=== PATIENT | male | born 1950 | race Caucasian/White ===

== ENCOUNTER 2018-09-04 03:41 | Emergency (ER) | payer OTHER ==
[~2018-09-04] VITALS: Ht 172.7 cm; Wt 59.0 kg
[2018-09-04] MEDS ORDERED: ONDANSETRON HCL INJ 2 MG/ML VIAL IV STA (03:50)
[2018-09-04 04:00] LABS: BASOPHILS % 0.3 % (0.0-1.0); EOSINOPHILS # (AUTO) 0.1 (0.0-0.4); EOSINOPHILS % 1.3 % (0.0-6.0); HEMATOCRIT 33.6 % (38.2-49.6); HEMOGLOBIN 11.8 g/dL (14.0-18.0); LYMPHOCYTES # (AUTO) 1.1 (1.0-3.2); LYMPHOCYTES % 10.3 % (18.0-39.1); MEAN CORPUSCULAR HEMOGLOBIN 35.8 pg (28-32); MEAN CORPUSCULAR HGB CONC 35.1 g/dL (31-35); MEAN CORPUSCULAR VOLUME 101.8 fL (81-99); MONOCYTES # (AUTO) 0.8 (0.2-0.8); MONOCYTES % 8.3 % (4.4-11.3); NEUTROPHILS # (AUTO) 8.1 (2.1-6.9); NEUTROPHILS % 79.6 % (38.7-80.0); PLATELET COUNT 230 x10e3/uL (140-360); RED CELL DISTRIBUTION WIDTH 14.1 % (11.7-14.4)
[2018-09-04] MEDS ORDERED: GLUCAGON FOR INJ 1 MG VIAL IV ONE (04:00)
[2018-09-04] MEDS ORDERED: LORAZEPAM INJ 2 MG/ML VIAL IV ONE (04:00)
[2018-09-04] MEDS ORDERED: SODIUM CHLORIDE 0.9% 1000ML 1,000 ML IV ONE (04:00)
[2018-09-04 04:13] LABS: INR 0.89; PROTHROMBIN TIME 12.9 seconds (11.9-14.5)
[2018-09-04 04:14] LABS: PARTIAL THROMBOPLASTIN TIME 24.1 seconds (23.8-35.5)
[2018-09-04] MEDS ORDERED: SIMVASTATIN20 MG PO (04:18)
[2018-09-04] MEDS ORDERED: LOSARTAN-HCTZ1 EAC2 PO (04:18)
[2018-09-04 04:20] LABS: ALANINE AMINOTRANSFERASE 16 IU/L (0-55); ALBUMIN 3.9 g/dL (3.5-5.0); ALBUMIN/GLOBULIN RATIO 1.5 (0.8-2.0); ALKALINE PHOSPHATASE 64 IU/L (40-150); ANION GAP 18.8 mmol/L (8-16); BLOOD UREA NITROGEN 10 mg/dL (7-26); BUN/CREATININE RATIO 8 (6-25); CARBON DIOXIDE 22 mmol/L (22-29); CHLORIDE 105 mmol/L (98-107); EST GLOMERULAR FILTRATION RATE > 60 ML/MIN (60-); GLUCOSE 92 mg/dL (74-118); POTASSIUM 3.8 mmol/L (3.5-5.1); SODIUM 142 mmol/L (136-145)
--- NOTE | 2018-09-04 04:48 | Diagnostic Imaging Report ---
ADDENDUM #1 Correction typo type linear degenerative report on primary lesion paragraph as follows: Should read : 8 mm soft tissue density nodule in the left piriform sinus, in the dependent portion, along the ventral margin of the epiglottis, which may correspond to a soft tissue density foreign body (such as meat per patient's clinical history). Signed by: Dr. Yris Hitchcock M.D. on 09/04/2018 4:51 AM ORIGINAL REPORT EXAMINATION: CT of the neck without contrast HISTORY: Choking, "patient feels a piece of meet stuck in the esophagus". COMPARISON: None TECHNIQUE: Multidetector helical axial images were obtained from the sternal notch through the skull base without intravenous contrast. Images were reconstructed using soft tissue and bone algorithms and were viewed in multiplanar format. Dose modulation, iterative reconstruction, and/or weight based adjustment of the mA/kV was utilized to reduce the radiation dose to as low as reasonably achievable. FINDINGS: Primary lesion: Approximately 8 mm soft tissue density nodule is seen in the left piriform sinus (axial soft tissue images 72), in the dependent portion, along the ventral margin of the difficulties, which may correspond to a foreign body. Nodes: No lymphadenopathy. Sinuses: Retention cyst in the left maxillary sinus, otherwise clear. Oral cavity: Limited evaluation due to streak artifact from metallic dental filling, grossly no abnormalities in the floor of the mouth. Salivary glands: Parotid and submandibular glands unremarkable. Pharynx: Unremarkable. Larynx: Unremarkable. Thyroid gland: Unremarkable. Upper esophagus: No abnormalities. Blood vessels: Cannot be evaluated due to the lack of IV contrast. Bones: Spondylolisthesis, uncovertebral and facet arthrosis at C5-C6 results in mild canal and moderate foraminal stenoses. 5 mm well-circumscribed sclerotic lesion in the right first rib may represent a bone island. Incidental findings: Approximately 1.2 cm sebaceous retention cyst in the subcutaneous soft tissues of the right posterior upper neck. The right lens is not visualized, likely from prior cataract surgery. IMPRESSION: Approximately 8 mm soft tissue density nodule in the left piriform sinus which may represent a foreign body, correlation with physical inspection is advised. Otherwise no radiopaque foreign bodies are identified in the aerodigestive tract. Signed by: Dr. Yris Hitchcock M.D. on 09/04/2018 4:45 AM
[2018-09-04] MEDS ORDERED: BENZOCAINE/TETRACAINE/BUTAMBEN AERO SPRAY 56 GM CAN ONE (05:00)
--- NOTE | 2018-09-04 05:21 | NUR ---
dr reddy at bedside cetacaine given, attempted to retrieve foreign body without success
--- NOTE | 2018-09-04 05:26 | NUR ---
transfer initiated to Replaced by [facility]
[2018-09-04] MEDS ORDERED: SODIUM CHLORIDE 0.9% 1000ML 1,000 ML ONE (05:43)
--- NOTE | 2018-09-04 05:58 | NUR ---
HENRIETTA KEYES speaking to Dr. Omalley at [facility]
[2018-09-04] MEDS ORDERED: SODIUM CHLORIDE 0.9% 1000ML 1,000 ML IV SCH (06:00)
[2018-09-04 06:23] VITALS: BP 154/82
--- NOTE | 2018-09-04 07:11 | NUR ---
Francisco. FAXED TO [facility].
== END 2018-09-04 07:30 | disposition short-term general hospital (02) ==
LOC: ER 03:41
DX: T17.228A Food in pharynx causing other injury, initial encounter (principal); T17.298A Other foreign object in pharynx causing other injury, initial encounter; I10 Essential (primary) hypertension; E78.5 Hyperlipidemia, unspecified; Z97.0 Presence of artificial eye
CPT/HCPCS: 36415; 70490; 80053; 85025; 85610; 85730; 96374; 99284; J1610; J2060; J2405; J7030